=== PATIENT | male | born 1980 | race Caucasian/White ===

== ENCOUNTER 2024-02-23 05:25 | Inpatient (IN) | payer MEDICAID ==
[~2024-02-23] VITALS: Ht 182.9 cm; Wt 78.0 kg
[2024-02-23 07:10] LABS: BILIRUBIN,URINE NEGATIVE (Neg); CLARITY,URINE CLOUDY (Clear); COLOR,URINE YELLOW (Yellow); GLUCOSE, URINE NEGATIVE (Neg); KETONES,URINE 40 mg/dl (Neg); LEUKOCYTE ESTERASE ,URINE NEGATIVE (Neg); NITRITES, URINE NEGATIVE (Neg); OCCULT BLOOD,URINE NEGATIVE (Neg); PROTEIN,URINE TRACE mg/dl (Neg); UA COLLECTION TYPE CLN CATCH MIDSTREAM
[2024-02-23 07:18] LABS: BACTERIA,URINE FEW /HPF (Neg); MUCUS STRANDS MANY /LPF (Neg); RBC,URINE 0-2 /HPF (0-2); SQUAMOUS EPITHELIAL CELL,UR FEW /LPF (FEW)
[2024-02-23] MEDS: normal saline 1000ML IV soln IVB ONE ×2 (07:18)
[2024-02-23] MEDS: metoclopramide 5 mg/ml inj IV ONE (07:20)
[2024-02-23] MEDS: ketorolac tromethamine 15mg/ml inj. IV ONE (07:20)
[2024-02-23] MEDS: diphenhydrAMINE 50 mg/ml inj IV ONE (07:20)
[2024-02-23] MEDS: ketorolac trometh. 30mg/ml inj. IV ONE (07:22)
[2024-02-23 07:31] LABS: BASOPHILS % (AUTO) 0.3 % (0-1); EOSINOPHILS % (AUTO) 0.1 % (0-6); HEMATOCRIT 47.1 % (42.0-52.0); HEMOGLOBIN 16.1 g/dl (14.0-17.9); LYMPHOCYTES # (AUTO) 0.7 X10'3 (1.1-4.8); MEAN CORPUSCULAR HGB CONC 34.1 g/dL (33.0-36.5); MEAN CORPUSCULAR VOLUME 93.7 FL (78-98); MEAN PLATELET VOLUME 7.1 FL (7.4-10.4); MONOCYTES # (AUTO) 1.1 X10'3 (0-0.9); MONOCYTES % (AUTO) 8.7 % (2-12); NEUTROPHILS # (AUTO) 11.4 X10'3 (1.8-7.7); NEUTROPHILS % (AUTO) 85.9 % (42-75); PLATELET COUNT 202 X10'3 (140-440); RED BLOOD COUNT 5.02 X10'6 (4.70-6.10); RED CELL DISTRIBUTION WIDTH 16.6 % (11.5-14.5); WHITE BLOOD COUNT 13.2 X10'3 (4.5-11.0)
[2024-02-23] MEDS ORDERED: NO HOME MEDS (07:36)
[2024-02-23 07:43] LABS: ALANINE AMINOTRANSFERASE 63 U/L (12-78); ALBUMIN/GLOBULIN RATIO 1.1 (1.1-1.5); ALKALINE PHOSPHATASE 95 IU/L (46-116); ANION GAP 11 (8-16); ASPARTATE AMINO TRANSFERASE 47 U/L (10-37); BILIRUBIN,TOTAL 0.9 MG/DL (0.1-1.0); BLOOD UREA NITROGEN 14 MG/DL (7-18); BUN/CREATININE RATIO 17.5 (10.0-20.0); CALCIUM 8.7 MG/DL (8.5-10.1); CHLORIDE 99 MMOL/L (99-107); GLUCOSE 98 MG/DL (70-104); POTASSIUM 3.9 MMOL/L (3.5-5.1); SODIUM 137 MMOL/L (135-145); TOTAL CARBON DIOXIDE 27.1 MMOL/L (24-32); TOTAL PROTEIN 7.5 G/DL (6.4-8.2); eCRCL 132 ML/MIN; eGFR > 90 ML/MIN
[2024-02-23 08:03] LABS: LIPASE > 375 U/L (16-77)
[2024-02-23] MEDS ORDERED: LORazepam 2 mg/ml vial IV ONE (08:10)
[2024-02-23] MEDS: LORazepam 1 MG tablet PO ONE (08:52)
[2024-02-23] MEDS ORDERED: iohexol 300mg/ml 100ml inj. ONE (09:18)
[2024-02-23] MEDS ORDERED: potassium Cl 20 mEq SR tablet PO PRN ×2 (09:30)
[2024-02-23] MEDS ORDERED: acetaminophen 325mg tablet PO PRN (09:30)
[2024-02-23] MEDS ORDERED: magnesium 2GM in 50ml NS 50 ML IV PRN (09:30)
[2024-02-23] MEDS ORDERED: magnesium 4gm in 100ml NS 100 ML IV PRN (09:30)
[2024-02-23] MEDS ORDERED: haloperidol lactate 5mg/ml inj IM PRN (09:30)
[2024-02-23] MEDS ORDERED: haloperidol 5mg tablet PO PRN (09:30)
[2024-02-23] MEDS ORDERED: mag hydrox/Alum hydrox/simeth 30ml oral suspension PO PRN (09:30)
[2024-02-23] MEDS ORDERED: LORazepam 2 mg/ml vial IV PRN (09:30)
[2024-02-23] MEDS ORDERED: potassium Cl 40MEQ/1/2NS 520ml 520 ML IV PRN (09:30)
[2024-02-23] MEDS: normal saline 1000ml 1,000 ML IV SCH (09:38)
[2024-02-23 10:50] VITALS: BP 137/92; PULSE 80; RESP 16; TEMP 98.1; O2SAT 97
[2024-02-23] MEDS: nicotine 14mg patch - 24hr TD SCH (14:15)
[2024-02-23] MEDS: ondansetron/PF 4mg/2ml inj IV PRN (14:19)
[2024-02-23] MEDS: HYDROmorphone inj. 0.5 MG/0.5 ML DISP.SYRIN IV PRN (14:19)
[2024-02-23] MEDS: proCHLORperazine 10 MG/2 ml inj IV PRN (17:46)
[2024-02-23] MEDS: LORazepam 1 MG tablet PO PRN (17:46)
[2024-02-23 18:00] VITALS: BP 147/90; PULSE 71; RESP 20; TEMP 97.8; O2SAT 99
[2024-02-23 20:00] VITALS: RESP 20; O2SAT 99
[2024-02-23] MEDS: K and/or MAG REPLACEMENT MC SCH (20:00)
[2024-02-23] MEDS: docusate sod 100mg capsule PO SCH (20:14)
[2024-02-23] MEDS: HYDROmorphone/PF 0.2 MG/ML SYRINGE IV PRN (20:39)
[2024-02-23 22:00] VITALS: BP 142/85; PULSE 83; RESP 16; TEMP 97.9; O2SAT 97
[2024-02-24] VITALS (7 sets, daily range): BP systolic 129–149; BP diastolic 72–102; PULSE 75–91; RESP 16–75; TEMP 97.9–99; O2SAT 18–99
[2024-02-24 06:04] LABS: BASOPHILS % (AUTO) 0.3 % (0-1); EOSINOPHILS % (AUTO) 0.5 % (0-6); HEMATOCRIT 45.9 % (42.0-52.0); HEMOGLOBIN 15.4 g/dl (14.0-17.9); LYMPHOCYTES # (AUTO) 0.6 X10'3 (1.1-4.8); LYMPHOCYTES % (AUTO) 6.1 % (21-51); MEAN CORPUSCULAR HEMOGLOBIN 32.1 PG (27.0-31.0); MEAN CORPUSCULAR HGB CONC 33.4 g/dL (33.0-36.5); MEAN CORPUSCULAR VOLUME 95.9 FL (78-98); MEAN PLATELET VOLUME 8.1 FL (7.4-10.4); MONOCYTES # (AUTO) 1.3 X10'3 (0-0.9); MONOCYTES % (AUTO) 12.4 % (2-12); NEUTROPHILS # (AUTO) 8.1 X10'3 (1.8-7.7); NEUTROPHILS % (AUTO) 80.7 % (42-75); PLATELET COUNT 173 X10'3 (140-440); RED BLOOD COUNT 4.79 X10'6 (4.70-6.10); WHITE BLOOD COUNT 10.1 X10'3 (4.5-11.0)
[2024-02-24 06:05] LABS: INR 1.1 INR; PROTHROMBIN TIME 11.3 SECONDS (9.0-12.0)
[2024-02-24 06:29] LABS: ALANINE AMINOTRANSFERASE 46 U/L (12-78); ALBUMIN 3.4 G/DL (3.4-5.0); ALKALINE PHOSPHATASE 81 IU/L (46-116); ANION GAP 7 (8-16); ASPARTATE AMINO TRANSFERASE 30 U/L (10-37); BILIRUBIN,TOTAL 1.1 MG/DL (0.1-1.0); BLOOD UREA NITROGEN 5 MG/DL (7-18); BUN/CREATININE RATIO 6.9 (10.0-20.0); CALCIUM 8.5 MG/DL (8.5-10.1); CHLORIDE 97 MMOL/L (99-107); CREATININE 0.72 MG/DL (0.60-1.10); GLUCOSE 104 MG/DL (70-104); LIPASE 374 U/L (16-77); MAGNESIUM 1.6 MG/DL (1.5-2.4); PHOSPHORUS 2.1 MG/DL (2.3-4.5); SODIUM 133 MMOL/L (135-145); TOTAL CARBON DIOXIDE 28.8 MMOL/L (24-32); TOTAL PROTEIN 6.8 G/DL (6.4-8.2); eCRCL 147 ML/MIN; eGFR > 90 ML/MIN
[2024-02-24] MEDS: multivitamins, therapeutics tablet PO SCH (07:37)
[2024-02-24] MEDS ORDERED: HYDROcodone/acetaminophen 5mg/325mg tablet PO PRN (12:35)
[2024-02-24] MEDS: HYDROcodone/acetaminophen 10/325mg tab PO PRN (13:04)
[2024-02-25 07:09] LABS: INR 1.1 INR; PROTHROMBIN TIME 11.4 SECONDS (9.0-12.0)
[2024-02-25 07:25] LABS: BASOPHILS % (AUTO) 0.2 % (0-1); EOSINOPHILS # (AUTO) 0.1 X10'3 (0-0.9); EOSINOPHILS % (AUTO) 1.6 % (0-6); HEMATOCRIT 47.9 % (42.0-52.0); HEMOGLOBIN 16.2 g/dl (14.0-17.9); LYMPHOCYTES # (AUTO) 0.7 X10'3 (1.1-4.8); LYMPHOCYTES % (AUTO) 9.5 % (21-51); MEAN CORPUSCULAR HEMOGLOBIN 32.2 PG (27.0-31.0); MEAN CORPUSCULAR HGB CONC 33.9 g/dL (33.0-36.5); MEAN CORPUSCULAR VOLUME 95.1 FL (78-98); MEAN PLATELET VOLUME 7.9 FL (7.4-10.4); MONOCYTES % (AUTO) 14.7 % (2-12); NEUTROPHILS # (AUTO) 5.3 X10'3 (1.8-7.7); PLATELET COUNT 176 X10'3 (140-440); RED BLOOD COUNT 5.04 X10'6 (4.70-6.10); WHITE BLOOD COUNT 7.1 X10'3 (4.5-11.0)
[2024-02-25 07:29] LABS: ALANINE AMINOTRANSFERASE 38 U/L (12-78); ALBUMIN 3.3 G/DL (3.4-5.0); ALBUMIN/GLOBULIN RATIO 0.9 (1.1-1.5); ALKALINE PHOSPHATASE 85 IU/L (46-116); ANION GAP 6 (8-16); ASPARTATE AMINO TRANSFERASE 22 U/L (10-37); BILIRUBIN,TOTAL 0.9 MG/DL (0.1-1.0); BLOOD UREA NITROGEN 4 MG/DL (7-18); BUN/CREATININE RATIO 5.4 (10.0-20.0); CALCIUM 8.8 MG/DL (8.5-10.1); CHLORIDE 97 MMOL/L (99-107); CREATININE 0.74 MG/DL (0.60-1.10); GLUCOSE 90 MG/DL (70-104); MAGNESIUM 1.7 MG/DL (1.5-2.4); PHOSPHORUS 3.3 MG/DL (2.3-4.5); POTASSIUM 4.3 MMOL/L (3.5-5.1); SODIUM 134 MMOL/L (135-145); TOTAL CARBON DIOXIDE 30.8 MMOL/L (24-32); TOTAL PROTEIN 7.1 G/DL (6.4-8.2); eCRCL 143 ML/MIN; eGFR > 90 ML/MIN
[2024-02-25 07:31] LABS: LIPASE > 375 U/L (16-77)
[2024-02-25] MEDS ORDERED: LORazepam 1 MG tablet PO PRN (09:30)
[2024-02-25] MEDS ORDERED: LORazepam 2 mg/ml vial IV PRN (09:30)
[2024-02-25 09:32] VITALS: BP 131/72; PULSE 78; RESP 18; TEMP 97.8; O2SAT 98
[2024-02-25 10:00] VITALS: BP 125/74; PULSE 81; RESP 16; TEMP 98.4; O2SAT 98
[2024-02-25 18:00] VITALS: BP 133/86; PULSE 80; RESP 18; TEMP 97.4; O2SAT 100
[2024-02-25 22:00] VITALS: BP 149/103; PULSE 75; RESP 18; TEMP 97.1; O2SAT 100
[2024-02-26 06:00] VITALS: BP 143/86; PULSE 83; RESP 18; TEMP 97.9; O2SAT 99
[2024-02-26 07:30] LABS: BASOPHILS % (AUTO) 0.4 % (0-1); EOSINOPHILS # (AUTO) 0.2 X10'3 (0-0.9); EOSINOPHILS % (AUTO) 2.9 % (0-6); HEMATOCRIT 45.8 % (42.0-52.0); HEMOGLOBIN 15.5 g/dl (14.0-17.9); LYMPHOCYTES # (AUTO) 0.9 X10'3 (1.1-4.8); LYMPHOCYTES % (AUTO) 15.6 % (21-51); MEAN CORPUSCULAR HEMOGLOBIN 32.1 PG (27.0-31.0); MEAN CORPUSCULAR HGB CONC 33.9 g/dL (33.0-36.5); MEAN CORPUSCULAR VOLUME 94.9 FL (78-98); MEAN PLATELET VOLUME 7.8 FL (7.4-10.4); MONOCYTES # (AUTO) 0.9 X10'3 (0-0.9); MONOCYTES % (AUTO) 16.6 % (2-12); NEUTROPHILS # (AUTO) 3.5 X10'3 (1.8-7.7); NEUTROPHILS % (AUTO) 64.5 % (42-75); PLATELET COUNT 174 X10'3 (140-440); RED BLOOD COUNT 4.83 X10'6 (4.70-6.10); RED CELL DISTRIBUTION WIDTH 16.4 % (11.5-14.5); WHITE BLOOD COUNT 5.4 X10'3 (4.5-11.0)
[2024-02-26 07:44] LABS: INR 1.1 INR; PROTHROMBIN TIME 11.4 SECONDS (9.0-12.0)
[2024-02-26 07:53] LABS: ALANINE AMINOTRANSFERASE 36 U/L (12-78); ALBUMIN/GLOBULIN RATIO 0.8 (1.1-1.5); ALKALINE PHOSPHATASE 71 IU/L (46-116); ANION GAP 4 (8-16); ASPARTATE AMINO TRANSFERASE 34 U/L (10-37); BILIRUBIN,TOTAL 0.8 MG/DL (0.1-1.0); BLOOD UREA NITROGEN 4 MG/DL (7-18); BUN/CREATININE RATIO 5.5 (10.0-20.0); CALCIUM 8.4 MG/DL (8.5-10.1); CHLORIDE 102 MMOL/L (99-107); CHOL/HDL RATIO 2.6 (0.00-4.99); CHOLESTEROL 115 MG/DL (0-200); CREATININE 0.73 MG/DL (0.60-1.10); GLUCOSE 85 MG/DL (70-104); HDL CHOLESTEROL 44 MG/DL (35-60); LDL CHOLESTEROL 58 MG/DL (50-100); LIPASE 142 U/L (16-77); MAGNESIUM 1.9 MG/DL (1.5-2.4); PHOSPHORUS 3.4 MG/DL (2.3-4.5); SODIUM 134 MMOL/L (135-145); TOTAL PROTEIN 6.6 G/DL (6.4-8.2); TRIGLYCERIDES 48 MG/DL (20-135); eCRCL 145 ML/MIN; eGFR > 90 ML/MIN
[2024-02-26 08:00] VITALS: RESP 18; O2SAT 99
[2024-02-26 08:29] LABS: TOTAL CELLS COUNTED 100
[2024-02-26 08:30] LABS: ANISOCYTOSIS 1+; PLATELET ESTIMATE NORMAL
[2024-02-26 10:00] VITALS: BP 142/96; PULSE 77; RESP 18; TEMP 97.4; O2SAT 99
[2024-02-26] MEDS ORDERED: NICO-631 TD (12:04)
[2024-02-27] MEDS ORDERED: thiamine 100mg tablet PO SCH (08:00)
[2024-02-27] MEDS ORDERED: LORazepam 1 MG tablet PO PRN (09:30)
[2024-02-27] MEDS ORDERED: LORazepam 2 mg/ml vial IV PRN (09:30)
[2024-02-28] MEDS ORDERED: folic acid 1mg tablet PO SCH (08:00)
== END 2024-02-26 12:42 | disposition home or self-care (01) | DRG 282 ==
LOC: ER 05:26 → ED HOLD 09:34 → ORTHO 4S 10:45
PROVIDERS: ADMIT Family Medicine; ATTEND Family Medicine
PROC: BW211ZZ Computerized Tomography (CT Scan) of Abdomen and Pelvis using Low Osmolar Contrast (ICD-10-PCS; principal; 2024-02-23)
DX: K85.20 Alcohol induced acute pancreatitis without necrosis or infection (principal); D72.823 Leukemoid reaction; Z20.822 Contact with and (suspected) exposure to COVID-19; F17.210 Nicotine dependence, cigarettes, uncomplicated; F10.939 Alcohol use, unspecified with withdrawal, unspecified; K86.1 Other chronic pancreatitis; Z80.0 Family history of malignant neoplasm of digestive organs; Z80.1 Family history of malignant neoplasm of trachea, bronchus and lung; Z71.6 Tobacco abuse counseling
CPT/HCPCS: 36415; 74177; 80053; 80061; 81001; 82948; 83690; 83735; 84100; 84145; 85007; 85025; 85610; 87081; 87088; 96374; 96375; 97161; 97530; 99285; G0378; J0780; J1170; J1200; J1885; J2405; J2765; J3490; J7030; Q9967

== ENCOUNTER 2024-07-10 17:33 | Emergency (ER) | payer MEDICAID ==
[~2024-07-10] VITALS: Ht 182.9 cm; Wt 77.7 kg
[~2024-07-10 17:33] MED LIST: NICO-631 TD; NO HOME MEDS
[2024-07-10 17:41] VITALS: BP 166/98; PULSE 97; RESP 18; O2SAT 96
== END 2024-07-10 23:33 | disposition left against medical advice (07) ==
LOC: ER 17:33
DX: R10.9 Unspecified abdominal pain (principal); R11.2 Nausea with vomiting, unspecified; Z53.21 Procedure and treatment not carried out due to patient leaving prior to being seen by health care provider